=== PATIENT | female | born 1935 | race Caucasian/White ===

== ENCOUNTER 2017-03-02 11:33 | Observation (INO) ==
[2017-03-02] MEDS ORDERED: Aspirin 81 MG TAB.CHEW PO ONE (11:46)
--- NOTE | 2017-03-02 11:51 | Emergency Department Note ---
Disposition Clinical Impression: Chest pain Qualifiers: Chest pain type: unspecified Qualified Code(s): R07.9 - Chest pain, unspecified Disposition: Admitted As Inpatient Condition: Good Referrals: NONE,PCP [Primary Care Provider] - Forms: ED Satisfaction Letter Chest Pain HPI - General Chief Complaint: ED Chest Pain Stated Complaint: "chest pain" Time Seen by Provider: 03/02/17 11:35 Source: family Mode of arrival: private vehicle Limitations: other Vital Signs Reviewed: Yes Nursing Notes Reviewed: Yes - History of Present Illness HPI Narrative: 81-year-old female history of dementia who presents to the ER due to chest pain. History is obtained by her who reports that she started complaining of chest pain last night. He gave HER-2 aspirin and she went to bed. Woke up today also complaining that she was having pain in the left side of her chest. He denies a prior history of heart disease for her, stents or [place]. No recent illnesses but he has been sick. At the time of arrival the patient currently denies any complaints. He states that she forgets easily what has recently happened. States that she is currently interacting at her baseline. Pt complaint: chest pain Onset (ago): day(s) Duration: other (Unknown) Pain Location: left chest Severity scale (1-10): 0 Pain Radiation: none Improves with: nothing Worsens with: nothing Associated symptoms: Denies: nausea, vomiting, diaphoresis, dyspnea Treatments prior to arrival chest pain: none, aspirin - Related Data On Oral Contraceptives: No Home Medications Medication Instructions Recorded Confirmed Aspirin [Lo-Dose Aspirin EC] 162 mg PO AD PRN 12/29/15 12/29/15 Estradiol [Estrace] 0.5 mg PO DAILY 12/29/15 12/29/15 HYDROcodone/Acet 7.5/325 mg [Louise 1 tab PO Q6H PRN 12/29/15 12/29/15 7.5-325 mg] Allergies Allergy/AdvReac Type Severity Reaction Status Date / Time No Known Drug Allergies Allergy See Verified 02/09/15 08:37 Comments All systems ED: reviewed and negative except as stated. Constitutional: Denies: fever Cardiovascular: Denies: chest pain Respiratory: Denies: cough, dyspnea Gastrointestinal: Denies: abdominal pain, nausea, vomiting Musculoskeletal: Denies: back pain, neck pain Chest Pain PMH - Past Medical History Medical history: Reports: dementia, GERD, other Surgical history: Reports: , cholecystectomy Psychiatric history: Reports: depression - Social History Smoking Status: Never smoker Alcohol use: Reports: none Drug use: Reports: none Physical Exam - General Limitations: other General appearance: alert, in no apparent distress - Head Head exam: atraumatic, normocephalic - Eye Eye exam: Present: normal appearance - ENT ENT exam: normal exam - Neck Neck exam: Present: normal inspection, full ROM - Chest Chest inspection: Present: normal inspection, symmetric chest wall rise. Absent : tenderness - Respiratory Respiratory exam: Present: normal lung sounds bilaterally - Cardiovascular Cardiovascular exam: Present: regular rate, normal rhythm, normal heart sounds - Abdominal Exam Abdominal exam: Present: soft, Non-Tender. Absent: tenderness - Extremities Exam Extremities exam: Present: normal inspection, full ROM - Expanded Upper Extremity Exam Shoulder exam: Present: normal inspection, full ROM Arm exam: Present: normal inspection, full ROM Elbow exam: Present: normal inspection, full ROM Forearm/Wrist exam: Present: normal inspection, full ROM Hand exam: Present: normal inspection, full ROM - Expanded Lower Extremity Exam Hip/Pelvis exam: Present: normal inspection, full ROM Upper leg exam: Present: normal inspection, full ROM Knee exam: Present: normal inspection, full ROM Lower leg exam: Present: normal inspection, full ROM Ankle exam: Present: normal inspection, full ROM Foot/toe exam: Present: normal inspection, full ROM - Neurological Exam Neurological exam: Present: alert, other (GCS 15. Nonfocal exam.) - Psychiatric Psychiatric exam: Present: normal affect, normal mood - Skin Skin exam: Present: warm, dry, intact Course Course Narrative: Patient seen and examined. She currently denies any complaints however says that she is difficult with her memory. We will obtain EKG, chest x-ray as well as labs. Aspirin ordered. She will require admission as she is a poor historian complaining of chest pain. Vital Signs Temperature 97.6 F 03/02/17 11:38 Pulse Rate 92 03/02/17 11:38 Respiratory Rate 16 03/02/17 11:38 Blood Pressure 169/80 03/02/17 11:38 O2 Sat by Pulse Oximetry 98 03/02/17 11:38 Temperature 97.6 F 03/02/17 11:38 Pulse Rate 92 03/02/17 11:58 Respiratory Rate 18 03/02/17 11:58 Blood Pressure 169/80 03/02/17 11:58 O2 Sat by Pulse Oximetry 98 03/02/17 11:58 Oxygen Delivery Oxygen Delivery Room Air Chest Pain - MDM Narrative Medical decision making narrative: 81-year-old female presents to the ER due to chest pain. She is a poor historian with a history of dementia. Her EKG here shows slight depression in lateral leads. Her initial troponin is within normal limits. Patient given 4 aspirin. Other imaging and labs reviewed with no acute abdomen on his. Patient accepted to the hospitalist service for chest pain rule out. - Lab Data Lab results reviewed: Yes I reviewed the patient's lab results. Result diagrams: 03/02/17 11:56 03/02/17 11:56 Lab Results 03/02/17 03/02/17 03/02/17 Range/Units 11:56 11:56 11:56 WBC 9.2 (4.3-11.1) K/mcL RBC 3.84 (3.82-4.97) M/mcL Hgb 12.2 (11.5-15.4) g/dL Hct 37.8 (35.3-44.9) % MCV 98.4 (83.0-100.0) fL MCH 31.8 (28.0-33.3) pg MCHC 32.3 (31.6-35.5) g/dL RDW 12.9 (11.5-14.5) % Plt Count 249 (140-400) K/mcL MPV 9.0 L (9.4-12.4) fL Immature Gran % 0.2 (0-4) % Seg Neutrophils % 83.1 % Lymphocytes % 9.7 % Monocytes % 6.3 % Eosinophils % 0.3 % Basophils % 0.4 % Neutrophils # 7.6 (1.6-8.9) K/mcL Lymphocytes # 0.9 (0.6-4.6) K/mcL Monocytes # 0.6 (0.0-1.3) K/mcL Eosinophils # 0.0 (0.0-0.6) K/mcL Basophils # 0.0 (0.0-0.2) K/mcL Sodium 136 (136-145) mEq/L Potassium 3.9 (3.5-5.1) mEq/L Chloride 101 (98-107) mEq/L Carbon Dioxide 31 H (23-29) mEq/L BUN 12 (8-23) mg/dL Creatinine 0.82 (0.60-1.20) mg/dL Est GFR ( Amer) > 60 (> 60) Est GFR (Non-Af Amer) > 60 (> 60) BUN/Creatinine Ratio 15 (6-26) Glucose 107 H (70-105) mg/dL Calculated Osmolality 282 (280-300) Calcium 8.8 (8.6-10.3) mg/dL Troponin I < 0.03 (< 0.04) ng/mL - Radiology Data Radiology results reviewed: Yes I reviewed the patient's radiology results. Chest X-Ray 03/02/17 11:46 IMPRESSION: Bibasilar atelectasis. The left lung base is otherwise limited in exam due to overlying breast implant. D/ / 03/02/2017 12:47:51 Tri Patel MD / av Interpreting Provider: Tri Patel MD - EKG Data EKG attestation: Yes I reviewed and interpreted this EKG. EKG results narrative: EKG demonstrates sinus rhythm with a rate of 96 bpm. Left axis deviation. Normal intervals. Normal R-wave progression. There is [address] depression in leads V5 and V6 from previous EKG. No ST elevations. No significant changes from previous EKG with the exception of ST depression on 11/03/16 Heart Score - Score History: Slightly Suspicious EKG: Non Specific repolarisation Disturbance Age: Greater than 65 Risk Factors: No risk factors known Troponin: Less than normal limit HEART Score Total: 3 S.B.A.R. - S.B.A.R. Situation: Demographics, MOA Background: Presenting Complaint, Relevant PMH, Meds, & Allergies Assessment: Course and respsone to treatment, Patient/Family Expectation, Pertinant Lab Results Recommendation: Barrier(s) to disposition, Recommendation based on pending studies, treatments, or consults S.B.A.RHunter Report Given to: Dr. Bryan Becker Repor Time: 13:10
[2017-03-02 12:09] LABS: Basophils % 0.4 %; Eosinophils % 0.3 %; Hematocrit 37.8 % (35.3-44.9); Hemoglobin 12.2 g/dL (11.5-15.4); Immature Granulocytes % 0.2 % (0-4); Lymphocytes # 0.9 K/mcL (0.6-4.6); Lymphocytes % 9.7 %; Mean Corpuscular HGB Conc 32.3 g/dL (31.6-35.5); Mean Corpuscular Hemoglobin 31.8 pg (28.0-33.3); Mean Corpuscular Volume 98.4 fL (83.0-100.0); Monocytes # 0.6 K/mcL (0.0-1.3); Monocytes % 6.3 %; Neutrophils # 7.6 K/mcL (1.6-8.9); Platelet Count 249 K/mcL (140-400); Red Blood Count 3.84 M/mcL (3.82-4.97); Red Cell Distribution Width 12.9 % (11.5-14.5); Segmented Neutrophils % 83.1 %
--- NOTE | 2017-03-02 12:13 | Emergency Department Note ---
START Narrative - START START: I examined this patient and my medical decision-making was reviewed with the JOB SETTER/PA/Advanced Practice Nurse/Resident Physician. I agree with the documented findings, disposition and treatment plan as described except to the extent set forth below. ED attending: Patient's emergency medicine resident Dr. Honorio Wright. Please see copy of this note for H&P evaluation and management and ED disposition. We both had independent [id number] time in contact with this patient. Briefly: A 1-year-old female no prior history of known CAD presents with Alzheimer's fleeting chest pain patient is a poor historian spouse at bedside provides all the history. EKG shows nonspecific changes. Patient getting a troponin chest x-ray screening labs with admission. Patient getting aspirin. Providing 30 minutes of critical care services for this patient. Repeat EKG done approximately 1 hour afterwards shows no acute changes when compared to EKG #1.
[2017-03-02 12:26] LABS: BUN/Creatinine Ratio 15 (6-26); Blood Urea Nitrogen 12 mg/dL (8-23); Calcium 8.8 mg/dL (8.6-10.3); Carbon Dioxide 31 mEq/L (23-29); Chloride 101 mEq/L (98-107); Glucose 107 mg/dL (70-105); Osmolality,Calculated 282 (280-300); Potassium 3.9 mEq/L (3.5-5.1); Sodium 136 mEq/L (136-145); eGFR For African Americans > 60 (> 60); eGFR For Non-African Americans > 60 (> 60)
[2017-03-02] MEDS ORDERED: *HR* Morphine 2 MG/ML SYRINGE IVP ONE (13:37)
[2017-03-02] MEDS ORDERED: Naloxone 0.4 MG/ML INJ IVP PRN ×2 (18:39→18:45)
--- NOTE | 2017-03-02 19:19 | Internal Med History&Physical ---
Date of Encounter: 03/31/17 Time of Encounter: 19:18 Assessment and Plan (1) Chest pain Status: Resolved Chest pain due to DD *CAD *Muskuloskeletal CP - myofascial strain, costochondritis *GERD *Esophageal spasm *Pericarditis - unlikely *Pneumonia - no infiltrate on CXR PLAN: - Cardiac enzymes x 2 q 6 hr - EKG now and in AM - ASA - O2 by NC to keep SpO2 greater than 92% - UA - CBCD, BMP in AM - Fasting lipids - Morphine 2 mg IV q 2-4 hr PRN chest pain - Tylenol 650 mg PO q 4-6 hr PRN headache - Home meds (check list) - 2D Echo - Cardiology consult Qualifiers: Chest pain type: unspecified Qualified Code(s): R07.9 - Chest pain, unspecified (2) Dementia Status: Chronic Qualifiers: Dementia type: Alzheimer's disease Alzheimer's disease onset: late-onset Dementia behavioral disturbance: without behavioral disturbance Qualified Code (s): 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 Cuevas is a 81 year old female with history of dementia who presents to the ER due to chest pain. As per her , she started complaining of chest pain last night. She has no history of heart disease , stents or MD. EKG demonstrates sinus rhythm with a rate of 96 bpm. Left axis deviation. Normal intervals. Normal R-wave progression. There is [address] depression in leads V5 and V6 from previous EKG. No ST elevations. No significant changes from previous EKG with the exception of ST depression on 11/03/16. Currently, she denies any chest pain, she was admitted for further evaluation and management. Past Med Surg Social Fam HX - Past Medical History Medical history: dementia, GERD, other Psychiatric history: depression - Past Surgical History Surgical History: , cholecystectomy - Social History Smoking Status: Never smoker Smokeless Tobacco Status: No Alcohol use: none Drug use: none - Family History Sister Hx Family Cancer: Yes (One sister had breast cancer) Father Hx Family Cardiac Disorders: Yes (Coronary artery disease and MD) Internal Medicine - H&P: Meds Estradiol [Estrace] 0.5 mg PO DAILY 12/29/15 [History] HYDROcodone/Acet 7.5/325 mg [[place] 7.5-325 mg] 1 tab PO Q6H PRN 12/29/15 [ History] Aspirin 81 mg PO DAILY #30 tab.chew 03/05/17 [Rx] Fluconazole [Diflucan] 150 mg PO ONCE #1 tab 03/05/17 [Rx] 3 Allergy/AdvReac Type Severity Reaction Status Date / Time No Known Drug Allergies Allergy See Verified 02/09/15 08:37 Comments ROS unobtainable: due to mental status All Systems PM: A 10-system review of systems was performed and is negative for pertinent findings except as documented above in the HPI. - Constitutional Vitals: Temp Pulse Resp BP Pulse Ox 98.3 F 86 17 154/78 94 03/02/17 14:06 03/02/17 14:06 03/02/17 14:06 03/02/17 14:06 03/02/17 14:06 General appearance: Present: pleasant - Head Head exam: Present: atraumatic, normocephalic - Respiratory Respiratory exam: Present: CTAB. Absent: accessory muscle use, rales, rhonchi, wheezes - Cardiovascular Cardiovascular exam: Present: RRR, +S1, +S2. Absent: diastolic murmur, gallop, rubs, systolic murmur - GI/Abdominal GI/Abdominal exam: Present: normal bowel sounds, soft, no peritoneal signs. Absent: distended, tenderness - Extremities Exam Extremities exam: Present: warm, radial pulses palpable and symmetrical. Absent : calf tenderness, cyanotic, pedal edema Internal Med - H&P Results - Labs CBC & Chem 7: 03/03/17 06:43 03/03/17 00:58
[2017-03-03 01:14] LABS: INR 1.1
[2017-03-03 01:17] LABS: Activated Partial Thrombo Time 26.1 Seconds (26.0-36.0)
[2017-03-03 01:44] LABS: Alanine Aminotransferase 11 Units/L (7-52); Albumin 3.2 g/dL (3.5-5.7); Alkaline Phosphatase 57 Units/L (34-104); Aspartate Amino Transferase 15 Units/L (13-39); BUN/Creatinine Ratio 22 (6-26); Blood Urea Nitrogen 18 mg/dL (8-23); Calcium 8.4 mg/dL (8.6-10.3); Carbon Dioxide 27 mEq/L (23-29); Chloride 101 mEq/L (98-107); Chol/HDL Ratio 2.4 (0-4.9); Cholesterol 107 mg/dL (< 200); Globulin 3.1 g/dL (2.4-3.5); Glucose 107 mg/dL (70-105); HDL Cholesterol 45 mg/dL (40-59); LDL Cholesterol,Calculated 47 mg/dL (0-99); Magnesium 1.7 mg/dL (1.6-2.6); Osmolality,Calculated 280 (280-300); Phosphorous 3.1 mg/dL (2.7-4.5); Potassium 3.7 mEq/L (3.5-5.1); Sodium 134 mEq/L (136-145); Total Protein 6.3 g/dL (6.4-8.9); Triglycerides 76 mg/dL (< 150); eGFR For African Americans > 60 (> 60); eGFR For Non-African Americans > 60 (> 60)
[2017-03-03 03:29] LABS: Clarity,Urine Clear (Clear); Color,Urine Yellow (Yellow)
[2017-03-03 03:30] LABS: Bilirubin,Urine Negative (Negative); Blood,Urine Moderate-intact (Negative); Glucose,Urine (UA) Normal (Normal); Ketones,Urine Trace mg/dL (Negative); Leukocyte Esterase,Urine Negative (Negative); Nitrite,Urine Negative (Negative); PH,Urine 6.5 pH Units (5.0-8.0); Protein,Urine 30 mg/dL (Neg-Trace); Specific Gravity,Urine 1.011 (1.010-1.025); Urobilinogen,Urine Normal (Normal)
[2017-03-03 03:35] LABS: RBC,Urine 15-30 per hpf (0-3); Squamous Epithelial Cell,Urine Many per lpf (None-Few)
[2017-03-03 03:36] LABS: Bacteria,Urine Many per hpf (None-Few); Hyaline Casts,Urine None Seen per lpf (None-Few)
[2017-03-03 07:01] LABS: Basophils % 0.5 %; Eosinophils % 0.6 %; Hematocrit 34.9 % (35.3-44.9); Hemoglobin 11.2 g/dL (11.5-15.4); Immature Granulocytes % 0.3 % (0-4); Lymphocytes # 1.3 K/mcL (0.6-4.6); Mean Corpuscular HGB Conc 32.1 g/dL (31.6-35.5); Mean Corpuscular Hemoglobin 30.9 pg (28.0-33.3); Mean Corpuscular Volume 96.4 fL (83.0-100.0); Mean Platelet Volume 9.1 fL (9.4-12.4); Monocytes # 0.6 K/mcL (0.0-1.3); Monocytes % 9.7 %; Neutrophils # 4.4 K/mcL (1.6-8.9); Platelet Count 228 K/mcL (140-400); Red Blood Count 3.62 M/mcL (3.82-4.97); Red Cell Distribution Width 12.6 % (11.5-14.5); Segmented Neutrophils % 68.9 %
[2017-03-03] MEDS: Aspirin 81 MG TAB.CHEW PO SCH (07:57)
--- NOTE | 2017-03-03 09:13 | Electrocardiograph Report ---
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
[2017-03-03] MEDS: *HR* Morphine 2 MG/ML SYRINGE IVP PRN ×2 (09:19→14:05)
--- NOTE | 2017-03-03 09:32 | Electrocardiograph Report ---
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
--- NOTE | 2017-03-03 16:32 | Internal Med Progress Note ---
Date of Encounter: 03/03/17 Time of Encounter: 16:30 - Assessment and plan (1) Chest pain Current Visit: No Status: Resolved Assessment and plan: presented with chest pain that started evening of presentation. No known CAD. Serial troponins negative, EKG without acute ST changes. TTE with EF 55%. NPO at midnight, stress test pending. Consult cardiology if needed. Cont ASA Qualifiers: Chest pain type: unspecified Qualified Code(s): R07.9 - Chest pain, unspecified (2) Dementia Current Visit: No Status: Chronic Assessment and plan: per hx. Mentation at baseline. Supportive care Qualifiers: Dementia type: Alzheimer's disease Alzheimer's disease onset: late-onset Dementia behavioral disturbance: without behavioral disturbance Qualified Code (s): G30.1 - Alzheimer's disease with late onset; F02.80 - Dementia in other diseases classified elsewhere without behavioral disturbance; F02.80 - Dementia in other diseases classified elsewhere without behavioral disturbance; F02.80 - Dementia in other diseases classified elsewhere without behavioral disturbance (3) DVT prophylaxis Current Visit: Yes Status: Acute Assessment and plan: Lovenox - Time Spent With Patient less than 15 minutes - Subjective Interval history: Seen and examined at bedside; patient is new to me. Information obtained from chart review and has been as patient has history of dementia and does not know details. tells me patient complained of chest pain yesterday evening and was refusing to go to the emergency room. Says she went to bed and woke up in the middle night with abrupt chest pain. She did not appear short of breath. As noted above patient has dementia and is hard of hearing and does not know details. She is unable to describe chest pain, or other characteristics such as alleviating/aggravating factors, and radiation in quality. She does deny chest pain or shortness of breath on my exam. reports productive cough. No fevers. - Constitutional Vitals: Temp Pulse Resp BP Pulse Ox 99.4 F 115 16 177/82 94 03/03/17 15:51 03/03/17 15:51 03/03/17 15:51 03/03/17 15:51 03/03/17 15:51 General appearance: Present: A&O X 1, pleasant - Head Head exam: Present: atraumatic, normocephalic - Eye Eye exam: Present: PERRL, conjuntiva pink, sclera anicteric Pupils: Present: PERRL - Neck Neck exam general surgery: Present: supple, trachea midline. Absent: lymphadenopathy - Respiratory Respiratory exam: Present: CTAB. Absent: accessory muscle use, rales, rhonchi, wheezes - Cardiovascular Cardiovascular exam: Present: RRR, +S1, +S2. Absent: diastolic murmur, gallop, rubs, systolic murmur - GI/Abdominal GI/Abdominal exam: Present: normal bowel sounds, soft, no peritoneal signs. Absent: distended, tenderness - Extremities Exam Extremities exam: Present: warm, radial pulses palpable and symmetrical. Absent : calf tenderness, cyanotic, pedal edema - Neurological Exam Neurological exam: Present: CN II-XII intact, oriented X3, no focal deficits. Absent: pronater drift, facial droop, speech deficit - Skin Skin exam: Present: dry, intact Internal Medicine: Result - Labs CBC & Chem 7: 03/03/17 06:43 03/03/17 00:58 Labs: Short CBC 03/03/17 Range/Units 06:43 WBC 6.3 (4.3-11.1) K/mcL Hgb 11.2 L (11.5-15.4) g/dL Hct 34.9 L (35.3-44.9) % Plt Count 228 (140-400) K/mcL Neutrophils # 4.4 (1.6-8.9) K/mcL BMP 03/03/17 00:58 Sodium 134 L Potassium 3.7 Chloride 101 Carbon Dioxide 27 BUN 18 Creatinine 0.83 Glucose 107 H Calcium 8.4 L Cardiac Enzymes 03/02/17 03/03/17 03/03/17 Range/Units 19:04 00:58 06:43 Troponin I < 0.03 < 0.03 < 0.03 (< 0.04) ng/mL Liver Function 03/03/17 Range/Units 00:58 Total Bilirubin 1.0 (0.3-1.0) mg/dL AST 15 (13-39) Units/L ALT 11 (7-52) Units/L Alkaline Phosphatase 57 (34-104) Units/L Albumin 3.2 L (3.5-5.7) g/dL Urine 03/03/17 Range/Units 03:10 Urine Color Yellow (Yellow) Urine Clarity Clear (Clear) Urine pH 6.5 (5.0-8.0) pH Units Ur Specific [place] 1.011 (1.010-1.025) Urine Protein 30 H (Neg-Trace) mg/dL Urine Glucose (UA) Normal (Normal) mg/dL - ABG Interpretation ABG results: PT/INR, D-dimer PT 12.0 Seconds (9.4-12.1) 03/03/17 00:58 - Impressions Impressions Echocardiogram 03/03/17 08:00 Impressions: LVEF 55-60%. Mild left ventricular diastolic dysfunction. Normal right ventricular structure and function. Mild tricuspid regurgitation. No pulmonary hypertension. Left Ventricular Wall Motion: Rest Echo Findings All wall segments showed normal motion. Findings: Study Quality * Technically adequate exam. ECG Findings * Normal sinus rhythm. Left Ventricle * LVEF 55-60%. * Normal LV chamber size, wall thickness and function. * Mild left ventricular diastolic dysfunction. Right Ventricle * Normal right ventricular structure and function. Left Atrium * Normal left atrial size. Right Atrium * Normal right atrial size. Aortic Valve * No aortic regurgitation. * Aortic valve not well visualized. * No aortic stenosis. Mitral Valve * Normal mitral valve structure. * No mitral stenosis. * Trace mitral regurgitation. Tricuspid Valve * Tricuspid valve not well visualized. * Mild tricuspid regurgitation. * Estimated RA pressure is 3 mmHg. * Estimated RVSP is 20 mmHg. * No pulmonary hypertension. Pulmonic Valve * Pulmonic valve is not well visualized. * No pulmonic stenosis. * No pulmonic regurgitation. Pulmonary Artery * Pulmonary artery not well visualized. Aorta * Normally sized aortic root. Pericardium * There is no pericardial effusion present. Interatrial Septum * No evidence of PFO by color Doppler. IVC * Normal IVC dimensions and inspiratory collapse. Consult Discharge Plan - Plan Referrals: NONE,PCP [Primary Care Provider] -
[2017-03-03 17:41] LABS: Adenovirus Not Detected (Not Detect); Bordetella Pertussis Not Detected (Not Detect); Chlamydophila pneumoniae Not Detected (Not Detect); Coronavirus 229E Not Detected (Not Detect); Coronavirus HKU1 Not Detected (Not Detect); Coronavirus NL63 ***DETECTED*** (Not Detect); Coronavirus OC43 Not Detected (Not Detect); Human Metapneumovirus Not Detected (Not Detect); Human Rhinovirus/Enterovirus Not Detected (Not Detect); Influenza A Subtype 2009 H1 Not Detected (Not Detect); Influenza A Untypeable Not Detected (Not Detect); Influenza B Not Detected (Not Detect); Mycoplasma pneumoniae Not Detected (Not Detect); Parainfluenza Virus 1 Not Detected (Not Detect); Parainfluenza Virus 2 Not Detected (Not Detect); Parainfluenza Virus 3 Not Detected (Not Detect); Parainfluenza Virus 4 Not Detected (Not Detect)
[2017-03-03 17:43] LABS: Respiratory Syncytial Virus ***DETECTED*** (Not Detect)
[2017-03-03] MEDS ORDERED: Mag Hydrox/Al Hydrox/Simeth 30 ML UDC PO PRN (17:53)
--- NOTE | 2017-03-03 19:28 | Electrocardiograph Report ---
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
[2017-03-03] MEDS: Acetaminophen 325 MG TABLET PO PRN (19:45)
[2017-03-04] MEDS ORDERED: Regadenoson 0.4 MG/5 ML SYRINGE IVP ONE (06:21)
[2017-03-04] MEDS: *HR* Enoxaparin 40 MG/0.4 ML SYRINGE SQ SCH (06:45)
[2017-03-04] MEDS: *HR* Morphine 2 MG/ML SYRINGE IVP PRN ×2 (09:21→13:36)
[2017-03-04] MEDS: Aspirin 81 MG TAB.CHEW PO SCH (13:37)
--- NOTE | 2017-03-04 15:31 | Internal Med Progress Note ---
Date of Encounter: 03/04/17 Time of Encounter: 15:24 - Assessment and plan (1) Chest pain Current Visit: No Status: Resolved Assessment and plan: presented with chest pain that started evening of presentation. No known CAD. Serial troponins negative, EKG without acute ST changes. TTE with EF 55%. Nuclear stress test negative for ischemia or infarct. Chest pain continues to wax and wane. Difficult to ascertain severity and accuracy of chest pain with her advanced dementia. No further cardiac workup indicated at this time. Continue ASA. Qualifiers: Chest pain type: unspecified Qualified Code(s): R07.9 - Chest pain, unspecified (2) Dementia Current Visit: No Status: Chronic Assessment and plan: per hx. Mentation at baseline. Supportive care Qualifiers: Dementia type: Alzheimer's disease Alzheimer's disease onset: late-onset Dementia behavioral disturbance: without behavioral disturbance Qualified Code (s): G30.1 - Alzheimer's disease with late onset; F02.80 - Dementia in other diseases classified elsewhere without behavioral disturbance; F02.80 - Dementia in other diseases classified elsewhere without behavioral disturbance; F02.80 - Dementia in other diseases classified elsewhere without behavioral disturbance (3) DVT prophylaxis Current Visit: Yes Status: Acute Assessment and plan: Lovenox - Subjective Interval history: Seen and examined at bedside. Difficult to obtain history/subjective information with dementia and hard of hearing. She does report left-sided chest pain however she is unable to describe the pain, it radiates or any alleviating or aggravating factors. No chest pain on my exam, no chest pain with palpation. No shortness of breath. - Constitutional Vitals: Temp Pulse Resp BP Pulse Ox 97 F L 94 14 146/61 98 03/04/17 13:43 03/04/17 13:43 03/04/17 13:43 03/04/17 13:43 03/04/17 13:43 General appearance: Present: A&O X 1, pleasant - Head Head exam: Present: atraumatic, normocephalic - Eye Eye exam: Present: PERRL, conjuntiva pink, sclera anicteric Pupils: Present: PERRL - Neck Neck exam general surgery: Present: supple, trachea midline. Absent: lymphadenopathy - Respiratory Respiratory exam: Present: CTAB. Absent: accessory muscle use, rales, rhonchi, wheezes - Cardiovascular Cardiovascular exam: Present: RRR, +S1, +S2. Absent: diastolic murmur, gallop, rubs, systolic murmur - GI/Abdominal GI/Abdominal exam: Present: normal bowel sounds, soft, no peritoneal signs. Absent: distended, tenderness - Extremities Exam Extremities exam: Present: warm, radial pulses palpable and symmetrical. Absent : calf tenderness, cyanotic, pedal edema - Neurological Exam Neurological exam: Present: CN II-XII intact, oriented X3, no focal deficits. Absent: pronater drift, facial droop, speech deficit - Skin Skin exam: Present: dry, intact Internal Medicine: Result - Labs CBC & Chem 7: 03/03/17 06:43 03/03/17 00:58 - ABG Interpretation ABG results: PT/INR, D-dimer PT 12.0 Seconds (9.4-12.1) 03/03/17 00:58 Consult Discharge Plan - Plan Referrals: NONE,PCP [Primary Care Provider] -
[2017-03-04] MEDS ORDERED: Ketorolac 15 MG/ML VIAL IVP ONE (17:17)
[2017-03-04] MEDS: Acetaminophen 325 MG TABLET PO PRN (20:06)
[2017-03-05] MEDS: *HR* Enoxaparin 40 MG/0.4 ML SYRINGE SQ SCH (06:17)
[2017-03-05] MEDS ORDERED: Nystatin Cream 15 GM TUBE TP SCH (09:00)
[2017-03-05 09:18] VITALS: BP 168/77
[2017-03-05] MEDS: Aspirin 81 MG TAB.CHEW PO SCH (09:23)
--- NOTE | 2017-03-05 10:00 | Discharge Summary ---
Date of Encounter: 03/05/17 Time of Encounter: 09:58 - Discharge Diagnosis (1) Chest pain Priority: Primary Status: Resolved Comments: presented with chest pain that started evening of presentation. No known CAD. Serial troponins negative, EKG without acute ST changes. TTE with EF 55%. Nuclear stress test negative for ischemia or infarct. Etiology unknown, possible musculoskeletal but difficult to ascertain severity and accuracy of chest pain with her advanced dementia. No further cardiac workup indicated at this time. Continue ASA. Recommend follow-up with PCP within one week Qualifiers: Chest pain type: unspecified Qualified Code(s): R07.9 - Chest pain, unspecified (2) High blood pressure Priority: Primary Status: Acute Comments: BP intermittently elevated while inpatient. No previous diagnosis of hypertension. Not on antihypertensive medications. Hold on initiating medication at this time. Recommend follow-up with PCP within one week for BP recheck. Qualifiers: Hypertension type: unspecified secondary hypertension Qualified Code(s): I15.9 - Secondary hypertension, unspecified; I15 - Secondary hypertension (3) Yeast infection of the vagina Priority: Primary Status: Acute Comments: suspected with complaints of localized discomfort and burning sensation. Rx for Diflucan at discharge. (4) RSV (respiratory syncytial virus infection) Priority: Primary Status: Acute Comments: Symptomatic with hoarseness and cough. Resp infectious panel with RSV and coronavirus. Afebrile, no elevated WBC, no productive cough, no malaise or myalgias. Did not appear toxic or acute. No indication for ATB at this time. Supportive care. (5) Dementia Priority: Secondary Status: Chronic Comments: per hx. Mentation at baseline. Qualifiers: Dementia type: Alzheimer's disease Alzheimer's disease onset: late-onset Dementia behavioral disturbance: without behavioral disturbance Qualified Code (s): G30.1 - Alzheimer's disease with late onset; F02.80 - Dementia in other diseases classified elsewhere without behavioral disturbance; F02.80 - Dementia in other diseases classified elsewhere without behavioral disturbance; F02.80 - Dementia in other diseases classified elsewhere without behavioral disturbance - Discharge Medications Prescriptions: Aspirin 81 mg PO DAILY #30 tab.chew Fluconazole [Diflucan] 150 mg PO ONCE #1 tab Home Medications: Estradiol [Estrace] 0.5 mg PO DAILY 12/29/15 [History] HYDROcodone/Acet 7.5/325 mg [[place] 7.5-325 mg] 1 tab PO Q6H PRN 12/29/15 [ History] Aspirin 81 mg PO DAILY #30 tab.chew 03/05/17 [Rx] Fluconazole [Diflucan] 150 mg PO ONCE #1 tab 03/05/17 [Rx] Allergies/Adverse Reactions: 3 Allergy/AdvReac Type Severity Reaction Status Date / Time No Known Drug Allergies Allergy See Verified 02/09/15 08:37 Comments Procedures/tests Complete & Pending: Procedures Performed prior 72 hours Category Date Time Status NM leroy perf SPECT multi [NM] Routine Exams 03/04/17 07:00 Taken ECG 12 lead ECG [ECG] Routine Y 03/03/17 07:00 Completed ECG 12 lead ECG [ECG] Stat Y 03/02/17 18:41 Completed ECG 12 lead ECG [ECG] Stat Y 03/03/17 09:14 Ordered EV echocardiogram Routine Y 03/03/17 08:00 Completed SP pharm nuclear stress Routine Y 03/04/17 07:15 Completed Date of admission: 03/02/17 13:17 Primary care physician: PCP NONE Consults: 03/02/17 18:41 Consult to Cardiac Rehabilitation-Phase1 [CONS] Routine Comment: Reason for Consult: AMI Call Completed: Yes Consult to Nurse Navigator [CONS] Routine Comment: Discharging clinician: Ana Rosa Archer Anticipated date of discharge: 03/05/17 - Patient Status Disposition: Home, Self-Care Condition: Good Functional capacity at discharge: independent ambulation Overall status at discharge: patient is back to baseline - Discharge Instructions Instructions: Chest Pain (DC), Hypertension (DC), Fluconazole (By mouth), Respiratory Syncytial Virus (DC) Follow Up With: NONE,PCP [Primary Care Provider] - (Please call your primary care doctor within 24 hours or the next business day to make a follow-up appointment. Your blood pressure was intermittently high in the hospital and you should have your blood pressure checked within 1 week.) - Diet and Activity Activity: increase activity as tolerated Diet: advance to your usual diet Interval History: Seen and examined at bedside; she is alert to self only and has no complaints. She pleasantly confused. Per RN, patient reported vaginal discomfort and burning sensation. Patient is not sure if she has had a yeast infection in the past, unsure of drainage. Attempted vaginal exam at bedside with RN however patient became upset and aggravated. Discussed with and he is aware of Rx for Diflucan. Also discussed with that patient's blood pressure had intermittently been high and he will need to follow-up with PCP within one week for BP recheck. Hospital course: See assessment and plan for hospital course - Time Spent with Patient Total time spent providing and/or coordinating discharge services: - Constitutional Vitals: Temp Pulse Resp BP Pulse Ox 97.7 F 104 17 168/77 95 03/05/17 09:17 03/05/17 09:17 03/05/17 09:17 03/05/17 09:17 03/05/17 09:17 General appearance: Present: A&O X 1, pleasant - Head Head exam: Present: atraumatic, normocephalic - Eye Eye exam: Present: PERRL, conjuntiva pink, sclera anicteric Pupils: Present: PERRL - Neck Neck exam general surgery: Present: supple, trachea midline. Absent: lymphadenopathy - Respiratory Respiratory exam: Present: CTAB. Absent: accessory muscle use, rales, rhonchi, wheezes - Cardiovascular Cardiovascular exam: Present: RRR, +S1, +S2. Absent: diastolic murmur, gallop, rubs, systolic murmur - GI/Abdominal GI/Abdominal exam: Present: normal bowel sounds, soft, no peritoneal signs. Absent: distended, tenderness - Extremities Exam Extremities exam: Present: warm, radial pulses palpable and symmetrical. Absent : calf tenderness, cyanotic, pedal edema - Neurological Exam Neurological exam: Present: CN II-XII intact, oriented X3, no focal deficits. Absent: pronater drift, facial droop, speech deficit - Skin Skin exam: Present: dry, intact
--- NOTE | 2017-03-07 10:54 | Electrocardiograph Report ---
[place] [id number] Test Date: 2017-03-03 Pat Name: Jose Cuevas Department: 113 Room: [facility] Gender: F [employer]: MERISSA : 1935 Requested By: Ana Rosa Archer Order Number: [id number] Reading MD: Dimitry Warner DO Measurements Intervals [place] Rate: 89 P: 44 IN: 110 QRS: -40 QRSD: 92 T: 11 QT: 344 QTc: 391 Interpretive Statements SINUS RHYTHM WITH SHORT IN INTERVAL MARKED LEFT AXIS DEVIATION Electronically Signed On 03-07-2017 10:52:30 EST by Dimitry Warner DO
== END 2017-03-05 11:15 | disposition home or self-care (01) ==
LOC: 3BNU 11:33 → EMEROO 11:33 → 3BNU 14:03
PROVIDERS: ADMIT Internal Medicine Nephrology; ATTEND Registered Nurse